=== PATIENT | male | born 1985 | race Two or more races ===

== ENCOUNTER → 2020-09-05 | Day surgery (SDC) | payer OTHER ==
[~2020-09-05] MED LIST: ALLERGY MEDICATION PO; DEXAMETHASONE SOD PHOS INJ 4 MG/ML VIAL ONE; FENTANYL CITRATE/PF 100MCG/2 ML INJ ONE; GLYCOPYRROLATE INJ 0.2 MG/ML VIAL ONE; HYDRALAZINE HCL 20 MG/ML VIAL ONE; LIDOCAINE 1% W/EPINEPHRINE 20 ML VIAL ONE; LIDOCAINE HCL 2% LOCAL INJ 5 ML SDV VIAL INJ ONE; MIDAZOLAM HCL 2 MG/2 ML VIAL ONE; MUPIROCIN 2% OINT 22 GM TUBE ONE; NEOSTIGMINE 1 MG/ML 10ML VIAL ONE; OMEPRAZOLE40 MG PO; ONDANSETRON HCL INJ 2MG/ML 2ML 2 MG/ML VIAL ONE; OXYMETAZOLINE HCL 0.05% NAS 1 SPRAY BTL ONE; PROPOFOL IV EMULSION 10 MG/ML 20 ML VIAL ONE; PROTONIX20 MG PO; ROCURONIUM BROMIDE 10 MG/ML 5ML VIAL IV ONE; SEVOFLURANE INHAL SOLN 250 ML PEN BTL ONE; SODIUM CHLORIDE/ALOE VERA 14.1GM NASAL GEL ONE
--- NOTE | 2020-09-05 10:12 | Operative Report ---
DATE OF PROCEDURE: 09/05/2020 SURGEON: Rashaun Donnelly MD PREOPERATIVE DIAGNOSES: Nasal obstruction, deviated septum, and turbinate hypertrophy. POSTOPERATIVE DIAGNOSES: Nasal obstruction, deviated septum, and turbinate hypertrophy. PROCEDURE: Septoplasty, bilateral inferior turbinate reductions (submucous resection). SIGNIFICANT FINDINGS: Deviated anterior inferior septum to the right. Deviated posterior superior bony septum to the left. Bilateral inferior turbinate hypertrophy. ANESTHESIA: General endotracheal tube anesthesia. SPECIMENS REMOVED: Septal contents. ESTIMATED BLOOD LOSS: 10 mL. COMPLICATIONS: None. INDICATIONS: The patient is a 34-year-old male with many years history of right > left nasal obstruction. He denies sinus pain, rhinorrhea, or epistaxis. He has had no previous sinus or nasal surgery. Nasal endoscopy revealed deviated septum to the right anteriorly-inferiorly and deviated septum to the left posteriorly- superiorly, as well as bilateral inferior turbinate hypertrophy. He has been refractory to maximal medical treatment including topical nasal steroid sprays (including Flonase), antihistamines-decongestants (including Claritin-D). On examination, he has a septal deviation to the right in the anterior inferior portion and to the left in the posterior superior portion as well as bilateral inferior turbinate hypertrophy. He is scheduled for septoplasty, bilateral inferior turbinate reductions for the treatment of nasal obstruction, deviated septum and turbinate hypertrophy. Risks and complications of the procedures were thoroughly discussed with the patient include infection, bleeding, scarring, failure to improve, persistent or worse nasal obstruction, need for additional operations, septal perforation resulting in crusting, irritation, bleeding and pain, inability to smell or taste, poor external cosmetic appearance of the nose, need for blood transfusions, damage to surrounding nerves, blood vessels, and muscles, and leakage of brain fluid. He fully understands and gives consent. DESCRIPTION OF PROCEDURE: The patient was taken to the operating room and placed supine on the operating table where general anesthesia was achieved through orotracheal intubation. Eyes were taped. Ancef was administered. Injection with 1% lidocaine with 1:100,000 epinephrine was injected into the submucoperichondrial planes bilaterally followed by packing of the nasal cavities with cottonoid pledgets soaked with Afrin. The face was then prepped and draped in the usual sterile fashion. Cottonoid pledgets were then removed. Thorough exam with a 0-degree rigid nasal endoscope revealed the septum to be deviated to the right in the anterior inferior portion and to the left in the posterior superior portion. The inferior turbinates were hypertrophied bilaterally. There was no evidence of polyps, tumors, or purulence. Hemitransfixion incision was then made on the left side with a 15 blade. Overlying mucoperichondrium was elevated off the right side with Stoddard and Marrero elevators past the bony-cartilaginous junction. The quadrangular cartilage was disarticulated from the bony septum. The deviated bony septum was then taken down with the Edmundo Billy double-action rongeurs and in this way the deviation posteriorly and superiorly to the left was addressed. Attention was then directed to the inferior portion of the quadrangular cartilage where it met the maxillary crest. The deviated septum to the right was then addressed by removing the deviated maxillary crest and in this way the anterior deviation to the right was addressed. The septum appeared to be straight following these procedures. Following this, the inferior turbinates were then addressed. Injection with 1% lidocaine with 1:100,000 epinephrine was injected into the anterior portions of the inferior turbinates. Following this, stab incisions were then made with a 15 blade. Tunneling was then performed with a Navjot elevator in the soft tissues, which in a submucosal fashion, was debrided with the microdebrider. The inferior turbinates were then lateralized with a Barron elevator. Following this, the hemitransfixion incision was then repaired with interrupted 4-0 Monocryl. Silastic septal splints coated with antibiotic ointment were then inserted into the nose bilaterally and held in place with through and through 2-0 silk. Gt Merocel packs which were also coated in antibiotic ointment were then inserted into the nose bilaterally and the strings were tied loosely around the columella. The patient was awakened in the operating room, extubated, and taken to the recovery room in good condition. Rashaun Donnelly MD JKY/MODL /[id number] SHAKA
[2020-09-05 10:35] VITALS: BP 153/98
== END | disposition home or self-care (01) ==
LOC: OR 05:36
PROVIDERS: ATTEND Otolaryngology
DX: J34.89 Other specified disorders of nose and nasal sinuses (principal); J34.2 Deviated nasal septum; J34.3 Hypertrophy of nasal turbinates; K21.9 Gastro-esophageal reflux disease without esophagitis; J45.909 Unspecified asthma, uncomplicated; E78.00 Pure hypercholesterolemia, unspecified; R06.83 Snoring; Z91.010 Allergy to peanuts; Z01.812 Encounter for preprocedural laboratory examination; Z11.59 Encounter for screening for other viral diseases
CPT/HCPCS: 30140; 30520; 88300; J0360; J1100; J2001; J2250; J2405; J2704; J2710; J3010; U0002 ×2